=== PATIENT | female | born 1960 | race Caucasian/White ===

== ENCOUNTER 2017-09-18 18:29 | Emergency (ER) | payer BC ==
[~2017-09-18] VITALS: Ht 157.5 cm; Wt 108.2 kg
[~2017-09-18 18:29] MED LIST: ENALAPRIL MALEA10 MG PO; LANTUS; METFORMIN HCL500 M3; Z.0.ACTOS15 MG PO; Z.0.ATENOLOL25 MG PO; Z.0.GLYBURIDE5 MG PO; Z.0.SIMVASTATIN20 MG PO; Z.0.ZOLPIDEM TARTRAT PO; ZIAC1 UDTAB GT; [UNRECOGNIZED DRUG - OTHER]
[2017-09-18] MEDS ORDERED: ALPRAZOLAM 0.5 MG TAB PO ONE (20:15)
[2017-09-18 20:43] VITALS: BP 148/84
== END 2017-09-18 20:50 | disposition home or self-care (01) ==
LOC: FSED 18:29
DX: F41.1 Generalized anxiety disorder (principal); I10 Essential (primary) hypertension; I51.9 Heart disease, unspecified; F17.210 Nicotine dependence, cigarettes, uncomplicated
CPT/HCPCS: 99282

== ENCOUNTER → 2018-02-19 | Day surgery (SDC) | payer BC ==
[~2018-02-19] MED LIST changes: +ASPIR 8181 MG PO; +FENOFIBRATE134 MG PO; +FENTANYL CITRATE/PF 100MCG/2 ML INJ ONE; +GLUCAGON FOR INJ 1 MG VIAL ONE; +HUMALOG100 UNIT/1 SC; +HYOSCYAMINE SULFATE 0.5 MG/ML INJ ONE; +MIDAZOLAM HCL 2 MG/2 ML VIAL ONE; +MULTI-VITAMIN1 EACH PO; +PANTOPRAZOLE SO40 MG PO; +PROPOFOL IV EMULSION 10 MG/ML 50 ML VIAL ONE; +TRESIBA PO; +VITAMIN B-121000 MC1 PO; +VITAMIN D1000 UNI1 PO
--- OUTSIDE RECORDS SUMMARY | 2018-02-19 12:52 | XMS REPORT | Continuity of Care Document ---
Author Author [facility] Interface Address Unknown Phone Unavailable Problems Problem Status Onset Date Classification Date Reported Comments Source SEPTIC KNEE Active 12/17/2015 [facility] RIGHT KNEE PAIN Active 12/17/2015 [facility] UNK Active 11/09/2015 [facility] DM (<span [id number]">Confirmed</span>) Active Problem 12/23/2015 [facility] Heartburn Active Problem 12/23/2015 [facility] Hypercholesteremia Active Problem 12/23/2015 [facility] HTN (<span ID="[id number]">Confirmed</span>) Active Problem 12/23/2015 [facility] ARTHRITIS DUE TO OTHER BACTERIA, LEFT KN Active [facility] PAIN IN RIGHT KNEE Active [facility] Medications Medication Details Route Status Patient Instructions Ordering Provider Order Date Source RN-wait to give Vanc dose till Trough drawn 12/19/15@ 3:30 RN-wait to give Vanc dose till Trough drawn 12/19/15@ 3:30, Attn:CEDRIC, Drug form: MISC, Route: MISC, ONCE, 12/19/15 3:00:00 CDT, Stop date: 12/19/15 3:00:00 CDT Inactive 12/19/2015 [facility] Humalog 24 unit, Route: SUB-Q, Before Lunch, Dosing Weight 113.636, kg, Start date: 12/18/15 11:30:00 CDT, Duration: 30 day, Stop date: 01/16/16 11:30:00 [employer] No Longer Active 12/18/2015 [facility] NovoLOG FlexPen 24 unit, 0.24 mL, Route: SUB-Q, Drug form: SOLN, Before Lunch, Start date: 12/18/15 11:30:00 CDT, Duration: 30 day, Stop date: 01/16/16 11:30:00 CSTNotes: Roll in palms of hands gently; Do not shake vigorously. (Same as: NovoLOG) "single patient use only" WASTE: F/P - Black; E - Municipal Trash Bin Stable for 28 days at room temperature. Expires in days from Date No Longer Active 12/18/2015 [facility] pantoprazole 40 mg, 1 tab, Route: PO, Drug form: ECTAB, Daily, Dosing Weight 113.636, kg, Start date: 12/18/15 9:00:00 CDT, Duration: 30 day, Stop date: 01/16/16 9:00:00 CSTNotes: Tablet should not be chewed or c rushed. (Same as: Protonix) No Longer Active 12/18/2015 [facility] One-A-Day Women 50 Plus 1 tab, Route: PO, Drug Form: TAB, Dosing Weight 113.636, kg, Daily, Start date: 12/18/15 9:00:00 CDT, Duration: 30 day, Stop date: 01/16/16 9:00:00 CSTNotes: (Same as:Thera-M, Theragran-M) WASTE: F/P - Black; E - Municipal Trash Bin Give with food. No Longer Active 12/18/2015 [facility] Hydrochlorothiazide 25 mg, 1 tab, Route: PO, Drug form: TAB, Daily, Dosing Weight 113.636, kg, Start date: 12/18/15 9:00:00 CDT, Duration: 30 day, Stop date: 01/16/16 9:00:00 CSTNotes: (Same as: Hydrodiuril) With food. No Longer Active 12/18/2015 [facility] enalapril 10 mg, 1 tab, Route: PO, Drug form: TAB, Daily, Dosing Weight 113.636, kg, Start date: 12/18/15 9:00:00 CDT, Duration: 30 day, Stop date: 01/16/16 9:00:00 CSTNotes: (Same as: Vasotec) No Longer Active 12/18/2015 [facility] Vitamin B12 2,500 microgram, 5 tab, Route: PO, Drug form: TAB, Daily, Dosing Weight 113.636, kg, Start date: 12/18/15 9:00:00 CDT, Duration: 30 day, Stop date: 01/16/16 9:00:00 CSTNotes: (Same As: Vitamin B12) No Longer Active 12/18/2015 [facility] Bupropion 200 mg, 2 tab, Route: PO, Drug form: ERTAB, Daily, Dosing Weight 113.636, kg, Start date: 12/18/15 9:00:00 CDT, Duration: 30 day, Stop date: 01/16/16 9:00:00 CSTNotes: Do not crush or chew. (Same As: Wellbutrin SR) No Longer Active 12/18/2015 [facility] Atenolol 50 mg, 1 tab, Route: PO, Drug form: TAB, Daily, Dosing Weight 113.636, kg, Start date: 12/18/15 9:00:00 CDT, Duration: 30 day, Stop date: 01/16/16 9:00:00 CSTNotes: (Same As:Tenormin) No Longer Active 12/18/2015 [facility] Levemir FlexPen 25 unit, 0.25 mL, Route: SUB-Q, Drug form: INJ, Before Breakfast, Start date: 12/18/15 7:30:00 CDT, Duration: 30 day, Stop date: 01/16/16 7:30:00 CSTNotes: Same as Levemir Do not hold insulin without co ntacting prescriber WASTE: F/P - Black; E - Municipal Trash Bin "single patient use only" No Longer Active 12/18/2015 [facility] NovoLOG FlexPen 24 unit, 0.24 mL, Route: SUB-Q, Drug form: SOLN, Before Breakfast, Start date: 12/18/15 7:30:00 CDT, Duration: 30 day, Stop date: 01/16/16 7:30:00 CSTNotes: Roll in palms of hands gently; Do not sha ke vigorously. (Same as: NovoLOG) "single patient use only" WASTE: F/P - Black; E - Municipal Trash Bin Stable for 28 days at room temperature. Expires in days from Date No Longer Active 12/18/2015 [facility] Humalog 24 unit, Route: SUB-Q, Before Breakfast, Dosing Weight 113.636, kg, Start date: 12/18/15 7:30:00 CDT, Duration: 30 day, Stop date: 01/16/16 7:30:00 [employer] No Longer Active 12/18/2015 [facility] Insulin Glargine 100 UNT/ML Injectable Solution [Lantus] 25 unit, Route: SUB-Q, Drug form: SOLN, Before Breakfast, Dosing Weight 113.636, kg, Start date: 12/18/15 7:30:00 CDT, Duration: 30 day, Stop date: 01/16/16 7:30:00 [employer] No Longer Active 12/18/2015 [facility] Calcium Chloride 0.0014 MEQ/ML / Potassium Chloride 0.004 MEQ/ML / Sodium Chloride 0.103 MEQ/ML / Sodium Lactate 0.028 MEQ/ML Injectable Solution 1,000 mL, Rate: 25 ml/hr, Infuse over: 40 hr, Route: IV, Dosing Weight 113.636 kg, Total Volume: 1,000, Start date: 12/18/15 0:38:00 CDT, Duration: 30 day, Stop date: 01/17/16 0:37:00 [employer] Inactive 12/18/2015 [facility] Ambien 5 mg, 1 tab, Route: PO, Drug form: TAB, Bedtime, Dosing Weight 113.636, kg, Start date: 12/17/15 21:00:00 CDT, Duration: 30 day, Stop date: 01/15/16 21:00:00 CSTNotes: (Same As: Ambien) No Longer Active 12/18/2015 [facility] Simvastatin 40 mg, 1 tab, Route: PO, Drug form: TAB, Bedtime, Dosing Weight 113.636, kg, Start date: 12/17/15 21:00:00 CDT, Duration: 30 day, Stop date: 01/15/16 21:00:00 CSTNotes: (Same as: Zocor) No Longer Active 12/18/2015 [facility] Insulin Glargine 100 UNT/ML Injectable Solution [Lantus] Route: SUB-Q, Drug form: SOLN, Bedtime, Dosing Weight 113.636, kg, Start date: 12/17/15 21:00:00 CDT, Duration: 30 day, Stop date: 01/15/16 21:00:00 [employer] Inactive 12/18/2015 [facility] gabapentin 600 mg, 2 cap, Route: PO, Drug form: CAP, Bedtime, Dosing Weight 113.636, kg, Start date: 12/17/15 21:00:00 CDT, Duration: 30 day, Stop date: 01/15/16 21:00:00 CSTNotes: (Same as: Neurontin) No Longer Active 12/18/2015 [facility] Fenofibrate 145 mg, 1 tab, Route: PO, Drug form: TAB, Bedtime, Dosing Weight 113.636, kg, Start date: 12/17/15 21:00:00 CDT, Duration: 30 day, Stop date: 01/15/16 21:00:00 CSTNotes: (Same as: Tricor) No Longer Active 12/18/2015 [facility] Levemir FlexPen 80 unit, 0.8 mL, Route: SUB-Q, Drug form: INJ, Bedtime, Start date: 12/17/15 21:00:00 CDT, Duration: 30 day, Stop date: 01/15/16 21:00:00 CSTNotes: Same as Levemir Do not hold insulin without contact ing prescriber WASTE: F/P - Black; E - Municipal Trash Bin "single patient use only" No Longer Active 12/18/2015 [facility] Metformin 1,000 mg, 2 tab, Route: PO, Drug form: TAB, BID, Dosing Weight 113.636, kg, Start date: 12/17/15 17:00:00 CDT, Duration: 30 day, Stop date: 01/16/16 9:00:00 CSTNotes: (Same as: Glucophage) Take with meal No Longer Active 12/17/2015 [facility] vancomycin + sodium chloride 0.9% 500 mL INJ (for IV set) 500 mL 2,000 mg, Route: IVPB, Q12H, Start date: 12/17/15 17:00:00 CDT, Stop date: 01/16/16 16:00:00 CSTNotes: TIME CRITICAL MEDICATION (Same As: Vancocin) Infusion rate 2001 mg: infuse over 2.5 hours MEDICATION WASTE Product Size: 1000 mg Product Wasted: ___ mg No Longer Active 12/17/2015 [facility] Vancomycin 1 ea, Route: MISC, Dosing Weight 113.636, kg, ONCALL, Start date: 12/17/15 17:00:00 CDT, Duration: 1 doses or times, Pharmacy to dose Inactive 12/17/2015 [facility] Humalog Route: SUB-Q, Before Dinner, Dosing Weight 113.636, kg, Start date: 12/17/15 16:30:00 CDT, Duration: 30 day, Stop date: 01/15/16 16:30:00 [employer] Inactive 12/17/2015 [facility] NovoLOG FlexPen 30 unit, 0.3 mL, Route: SUB-Q, Drug form: SOLN, Before Dinner, Start date: 12/17/15 16:30:00 CDT, Duration: 30 day, Stop date: 01/15/16 16:30:00 CSTNotes: Roll in palms of hands gently; Do not shake vigorously. (Same as: NovoLOG) "single patient use only" WASTE: F/P - Black; E - Municipal Trash Bin Stable for 28 days at room temperature. Expires in days from Date No Longer Active 12/17/2015 [facility] Morphine 4 mg, 2 mL, Route: IVP, Drug form: INJ, Q4H, Dosing Weight 113.636, kg, PRN Pain Score 6-10, Start date: 12/17/15 16:12:00 CDT, Duration: 30 day, Stop date: 01/16/16 16:11:00 CSTNotes: (Same as:MORPhine Sulfate) No Longer Active 12/17/2015 [facility] Tylenol 650 mg, 2 tab, Route: PO, Drug form: TAB, Q6H, Dosing Weight 113.636, kg, PRN Pain 1-3/Temp > 100.4 F, Start date: 12/17/15 16:12:00 CDT, Duration: 30 day, Stop date: 01/16/16 16:11:00 CSTNotes: Do not exceed 4 gm/day. (Same as: Tylenol) No Longer Active 12/17/2015 [facility] Zofran 4 mg, 2 mL, Route: IV, Drug form: INJ, Q6H, Dosing Weight 113.636, kg, PRN Nausea, Start date: 12/17/15 16:12:00 CDT, Duration: 30 day, Stop date: 01/16/16 16:11:00 CSTNotes: (Same as: Mariano) MEDICATION WASTE Product Size: 4 mg Product Wasted: ___ mg No Longer Active 12/17/2015 [facility] sodium chloride 0.9% 1000 ml INJ 1,000 mL 1,000 mL, Rate: 100 ml/hr, Infuse over: 10 hr, Route: IV, Dosing Weight 113.636 kg, Total Volume: 1,000, Start date: 12/17/15 16:11:00 CDT, Stop date: 01/16/16 23:00:00 [employer] No Longer Active 12/17/2015 [facility] Insulin, Aspart, Human 2 unit, 0.02 mL, Route: SUB-Q, Drug form: SOLN, Bedtime, Dosing Weight 113.636, kg, PRN Blood Glucose Results, Start date: 12/17/15 16:09:00 CDT, Duration: 30 day, Stop date: 01/16/16 16:08:00 CSTNotes: Roll in palms of hands gently; Do not shake vigorously. (Same as: NovoLOG) "single patient use only" WASTE: F/P - Black; E - Municipal Trash Bin Stable for 28 days at room temperature. Expires in days from Date No Longer Active 12/17/2015 [facility] Dextrose 50% Syringe 25 gm, 50 mL, Route: IVP, Drug Form: INJ, Dosing Weight 113.636, kg, PRN, PRN Blood Glucose Results, Start date: 12/17/15 16:09:00 CDT, Duration: 30 day, Stop date: 01/16/16 15:08:00 [employer] No Longer Active 12/17/2015 [facility] Glucagon 1 mg, Route: IM, Drug form: PDR/INJ, PRN, Dosing Weight 113.636, kg, PRN Blood Glucose Results, Start date: 12/17/15 16:09:00 CDT, Duration: 30 day, Stop date: 01/16/16 15:08:00 [employer] No Longer Active 12/17/2015 [facility] Enoxaparin 40 mg, 0.4 mL, Route: SUB-Q, Drug form: INJ, [id number], Dosing Weight 113.636, kg, Consider for obese patients, Start date: 12/17/15 16:00:00 CDT, Duration: 30 day, Stop date: 01/16/16 4:00:00 CSTNotes: (Same as: Lovenox) No Longer Active 12/17/2015 [facility] Humalog 30, SUB-Q, Before Dinner, 0 Refill(s) Active 12/17/2015 [facility] Humalog 24 unit, SUB-Q, Before Lunch, 0 Refill(s) Active 12/17/2015 [facility] Insulin Glargine 100 UNT/ML Injectable Solution [Lantus] 80, SUB-Q, Bedtime, 0 Refill(s) Active 12/17/2015 [facility] Clindamycin 900 mg, 50 mL, Route: IVPB, Drug form: INJ, [id number], Dosing Weight 111.818, kg, Start date: 12/17/15 11:00:00 CDT, Duration: 5 day, Stop date: 12/22/15 3:00:00 CDT No Longer Active 12/17/2015 [facility] Vancomycin 1,500 mg, 250 mL, Route: IVPB, Drug form: INJ, [id number], Dosing Weight 111.818, kg, Start date: 12/17/15 11:00:00 CDT, Duration: 5 day, Stop date: 12/21/15 23:00:00 CDTNotes: TIME CRITICAL MEDICATION Same as: Vancocin-NS (premixed) Infusion rate 2001 mg: infuse over 2.5 hours Inactive 12/17/2015 [facility] Acetaminophen 325 MG / Hydrocodone Bitartrate 7.5 MG Oral Tablet [[place] 7.5/325] 2 tab, Route: PO, Drug Form: TAB, Dosing Weight 111.818, kg, Q4H, PRN Pain Score 7-10, Start date: 12/17/15 10:29:00 CDT, Duration: 5 day, Stop date: 12/22/15 10:28:00 CDTNotes: Same as [place] 325-7.5mg Do not exceed 4gm/day of acetaminophen. No Longer Active 12/17/2015 [facility] Ketorolac 15 mg, Route: IVP, Q6H, Dosing Weight 111.818, kg, Start date: 11/22/15 12:00:00 CDT, Duration: 6 doses or times, Stop date: 11/23/15 18:00:00 CDT Inactive 11/22/2015 [facility] dexamethasone (ANES) Route: IV, Drug form: INJ, ONCE, Stop date: 11/22/15 10:24:00 CDT Inactive 11/22/2015 [facility] acetaminophen (ANES) Route: IV, Drug form: INJ, ONCE, Stop date: 11/22/15 10:24:00 CDT Inactive 11/22/2015 [facility] fentaNYL (ANES) Route: IV, Drug form: INJ, ONCE, Stop date: 11/22/15 10:24:00 CDT Inactive 11/22/2015 [facility] propofol (ANES) Route: IV, Drug form: INJ, ONCE, Stop date: 11/22/15 10:24:00 CDT Inactive 11/22/2015 [facility] lidocaine (ANES) Route: IV, Drug form: INJ, ONCE, Stop date: 11/22/15 10:24:00 CDT Inactive 11/22/2015 [facility] ceFAZolin (ANES) Route: IV, Drug form: INJ, ONCE, Stop date: 11/22/15 10:24:00 CDT Inactive 11/22/2015 [facility] ondansetron (ANES) Route: IV, Drug form: INJ, ONCE, Stop date: 11/22/15 10:24:00 CDT Inactive 11/22/2015 [facility] midazolam (ANES) Route: IV, Drug form: SOLN, ONCE, Stop date: 11/22/15 10:24:00 CDT Inactive 11/22/2015 [facility] Phenergan 12.5 mg, Route: IVPB, Q4H, Dosing Weight 111.818, kg, PRN Nausea & Vomiting, Start date: 11/22/15 10:13:00 CDT, Duration: 30 day, Stop date: 12/22/15 10:12:00 CDT Inactive 11/22/2015 [facility] Zofran 4 mg, Route: IV, Drug form: INJ, Q4H, Dosing Weight 111.818, kg, PRN Nausea, Start date: 11/22/15 10:13:00 CDT, Duration: 30 day, Stop date: 12/22/15 10:12:00 CDT Inactive 11/22/2015 [facility] Morphine 2 mg, Route: IVP, Q3H, Dosing Weight 111.818, kg, PRN Pain Score 1-3, Start date: 11/22/15 10:13:00 CDT, Duration: 30 day, Stop date: 12/22/15 10:12:00 CDT Inactive 11/22/2015 [facility] Hydromorphone 0.3 mg, Route: IVP, Q3H, Dosing Weight 111.818, kg, PRN Pain Score 4-6, Start date: 11/22/15 10:13:00 CDT, Duration: 30 day, Stop date: 12/22/15 10:12:00 CDT Inactive 11/22/2015 [facility] Tramadol 50 mg, Route: PO, Drug form: TAB, Q6H, Dosing Weight 111.818, kg, PRN Pain Score 1-3, Start date: 11/22/15 10:13:00 CDT, Duration: 30 day, Stop date: 12/22/15 10:12:00 CDT Inactive 11/22/2015 [facility] Acetaminophen 325 MG / Hydrocodone Bitartrate 5 MG Oral Tablet Route: PO, Dosing Weight 111.818, kg, Q4H, PRN Pain Score 4-6, Start date: 11/22/15 10:13:00 CDT, Duration: 30 day, Stop date: 12/22/15 10:12:00 CDT Inactive 11/22/2015 [facility] LR 1000 mL INJ (ANES) Route: IV, Total Volume: 1,000, Start date: 11/22/15 9:29:00 CDT, Stop date: 11/22/15 10:29:00 CDT Inactive 11/22/2015 [facility] Calcium Chloride 0.0014 MEQ/ML / Potassium Chloride 0.004 MEQ/ML / Sodium Chloride 0.103 MEQ/ML / Sodium Lactate 0.028 MEQ/ML Injectable Solution 1,000 mL, Rate: 25 ml/hr, Infuse over: 40 hr, Route: IV, Dosing Weight 111.818 kg, Total Volume: 1,000, Start date: 11/22/15 8:08:00 CDT, Duration: 30 day, Stop date: 12/22/15 8:07:00 CDT Inactive 11/22/2015 [facility] pantoprazole 40 mg oral enteric coated tablet 40 mg=1 tab, PO, Daily, # 30 tab, 0 Refill(s) Active 11/22/2015 [facility] buPROPion 200 mg oral extended release tablet 200 mg=1 tab, PO, Daily, # 60 tab, 0 Refill(s) Active 11/22/2015 [facility] Bupropion PO, 0 Refill(s) Active 11/22/2015 [facility] Cephalexin 500 MG Oral Capsule [Keflex] 500 mg=1 cap, PO, QID, X 10 day, # 40 cap, 0 Refill(s) Active 11/22/2015 [facility] Tramadol 50 mg, PO, Q4-6H, PRN Pain, # 20 tab, 0 Refill(s) Active 11/16/2015 [facility] Ambien PO, Bedtime, 0 Refill(s) Active 11/16/2015 [facility] Bydureon Pen 2 mg, SUB-Q, 0 Refill(s) Active 11/16/2015 [facility] Atenolol PO, Daily, 0 Refill(s) Active 11/16/2015 [facility] Vitamin D2 PO, 0 Refill(s) Active 11/16/2015 [facility] Vitamin B12 0 Refill(s) Active 11/16/2015 [facility] Glucosamine PO, 0 Refill(s) Active 11/16/2015 [facility] gabapentin PO, 0 Refill(s) Active 11/16/2015 [facility] Fenofibrate PO, Daily, 0 Refill(s) Active 11/16/2015 [facility] Aspirin 81 MG Enteric Coated Tablet 81 mg=1 tab, PO, Daily, # 90 tab, 3 Refill(s) Active 11/16/2015 [facility] enalapril 0 Refill(s) Active 11/16/2015 [facility] Simvastatin PO, Bedtime, 0 Refill(s) Active 11/16/2015 [facility] One-A-Day Women 50 Plus 1 tab, PO, Daily, 0 Refill(s) Active 11/16/2015 [facility] Hydrochlorothiazide PO, Daily, 0 Refill(s) Active 11/16/2015 [facility] Metformin PO, 0 Refill(s) Active 11/16/2015 [facility] Insulin Glargine 100 UNT/ML Injectable Solution [Lantus] SUB-Q, 0 Refill(s) Active 11/16/2015 [facility] Humalog SUB-Q, 0 Refill(s) Active 11/16/2015 [facility] Atenolol 25 Mg Tablet Daily Active [facility] Enalapril Maleate 10 Mg Tablet Daily Active [facility] Gabapentin (Gralise) 300 Mg Tab.er.24h Daily Active [facility] Glyburide 5 Mg Tablet Twice A Day Active [facility] Hctz/Bisoprolol (Ziac) 1 Udtab Tab Daily Active [facility] Lantus Active [facility] Metformin Hcl (Metformin Hcl Er) 500 Mg Tab.er.24 Twice A Day [facility] Pioglitazone Hcl (Actos) 15 Mg Tablet Daily Active [facility] Simvastatin 20 Mg Tablet Daily [facility] Zolpidem Tartrate 5 Mg Tablet As Needed [facility] Allergies, Adverse Reactions, Alerts Substance Category Reaction Severity Reaction type Status Date Reported Comments Source Immunizations Immunization Date Given Site Status Last Updated Comments Source Results Order Name Results Value Reference Range Date Interpretation Comments Source HEMATOLOGY MPV 7.4 fL 7.4 - 10.4 12/20/2015 [facility] Platelet 376 K/CMM 133 - 450 12/20/2015 [facility] RBC 3.68 M/CMM 4.20 - 5.40 12/20/2015 [facility] Hgb 10.0 g/dL 12.0 - 16.0 12/20/2015 [facility] MCV 83.8 fL 80.0 - 98.0 12/20/2015 [facility] HEMATOLOGY Hct 30.8 % 36.0 - 48.0 12/20/2015 [facility] MCH 27.2 pg 27.0 - 31.0 12/20/2015 [facility] MCHC 32.5 g/dL 32.0 - 36.0 12/20/2015 [facility] RDW 16.2 % 11.5 - 14.5 12/20/2015 [facility] WBC 6.9 K/CMM 3.7 - 10.4 12/20/2015 [facility] Basophils # 0.1 K/CMM 0.0 - 0.2 12/20/2015 [facility] HEMATOLOGY Segs 70.7 % 45.0 - 75.0 12/20/2015 [facility] HEMATOLOGY Lymphocytes 16.3 % 20.0 - 40.0 12/20/2015 [facility] HEMATOLOGY Monocytes 7.9 % 2.0 - 12.0 12/20/2015 [facility] HEMATOLOGY Eosinophils 4.2 % 0.0 - 4.0 12/20/2015 [facility] HEMATOLOGY Segs-Bands # 4.9 K/CMM 1.5 - 8.1 12/20/2015 [facility] HEMATOLOGY Monocytes # 0.5 K/CMM 0.0 - 0.8 12/20/2015 [facility] HEMATOLOGY Basophils 0.9 % 0.0 - 1.0 12/20/2015 [facility] HEMATOLOGY Lymphocytes # 1.1 K/CMM 1.0 - 5.5 12/20/2015 [facility] HEMATOLOGY Eosinophils # 0.3 K/CMM 0.0 - 0.5 12/20/2015 [facility] TOXICOLOGY Vanco Tr 16.8 ug/ml 12/19/2015 [facility] TOXICOLOGY Vanco Tr TND 0 12/19/2015 [facility] CHEM PANEL Glucose Lvl 129 mg/dL 70 - 99 12/18/2015 [facility] CHEM PANEL BUN 18 mg/dL 7 - 22 12/18/2015 [facility] CHEM PANEL Chloride Lvl 102 meq/L 95 - 109 12/18/2015 [facility] CHEM PANEL CO2 26 meq/L 24 - 32 12/18/2015 [facility] CHEM PANEL Potassium Lvl 4.2 meq/L 3.5 - 5.1 12/18/2015 [facility] CHEM PANEL Sodium Lvl 138 meq/L 135 - 145 12/18/2015 [facility] CHEM PANEL Creatinine Lvl 0.74 mg/dL 0.50 - 1.40 12/18/2015 [facility] CHEM PANEL AGAP 14.2 meq/L 10.0 - 20.0 12/18/2015 [facility] CHEM PANEL Calcium Lvl 8.2 mg/dL 8.5 - 10.5 12/18/2015 [facility] CHEM PANEL eGFR 93 mL/min/1.73m2 12/18/2015 Result Comment: The eGFR is calculated using the CKD-EPI formula. In most young, healthy individuals the eGFR will be >90 mL/min/1.73m2. The eGFR declines with age. An eGFR of 60-89 may be normal in some populations, particularly the elderly, for whom the CKD-EPI formula has not been extensively validated. Use of the eGFR is not recommended in the following populations: Individuals with unstable creatinine concentrations, including patients and those with serious co-morbid conditions. Patients with extremes in muscle mass or diet. The data above are obtained from the National Kidney Disease Education Program (NKDEP) which additionally recommends that when the eGFR is used in patients with extremes of body mass index for purposes of drug dosing, the eGFR should be multiplied by the estimated BMI. [facility] HEMATOLOGY WBC 7.9 K/CMM 3.7 - 10.4 12/18/2015 [facility] Hct 32.0 % 36.0 - 48.0 12/18/2015 [facility] MCHC 32.3 g/dL 32.0 - 36.0 12/18/2015 [facility] RDW 16.4 % 11.5 - 14.5 12/18/2015 [facility] RBC 3.81 M/CMM 4.20 - 5.40 12/18/2015 [facility] Hgb 10.3 g/dL 12.0 - 16.0 12/18/2015 [facility] Platelet 388 K/CMM 133 - 450 12/18/2015 [facility] MCV 84.0 fL 80.0 - 98.0 12/18/2015 [facility] MCH 27.2 pg 27.0 - 31.0 12/18/2015 [facility] MPV 7.8 fL 7.4 - 10.4 12/18/2015 [facility] Basophils # 0.1 K/CMM 0.0 - 0.2 12/18/2015 [facility] Segs-Bands # 5.5 K/CMM 1.5 - 8.1 12/18/2015 [facility] Lymphocytes # 1.6 K/CMM 1.0 - 5.5 12/18/2015 [facility] Monocytes # 0.6 K/CMM 0.0 - 0.8 12/18/2015 [facility] HEMATOLOGY Eosinophils # 0.2 K/CMM 0.0 - 0.5 12/18/2015 [facility] HEMATOLOGY Basophils 1.0 % 0.0 - 1.0 12/18/2015 [facility] HEMATOLOGY Eosinophils 2.2 % 0.0 - 4.0 12/18/2015 [facility] Lymphocytes 19.6 % 20.0 - 40.0 12/18/2015 [facility] HEMATOLOGY Segs 69.7 % 45.0 - 75.0 12/18/2015 [facility] HEMATOLOGY Monocytes 7.5 % 2.0 - 12.0 12/18/2015 [facility] BLOOD BANK RESULTS AB Int Anti- D 12/18/2015 [facility] BLOOD BANK RESULTS ABO/Rh B NEG 12/17/2015 [facility] BLOOD BANK RESULTS Antibody Scrn Positive 1 (12/17/15 2:33 PM) 12/17/2015 Result Comment: 12/17/2015 18:20 [id number] "Significant Findings called to Janice Mercer 12/17/2015 18:20__by _[email or web address]_.Read Back OK." [facility] CHEM PANEL eGFR 78 mL/min/1.73m2 12/17/2015 Result Comment: The eGFR is calculated using the CKD-EPI formula. In most young, healthy individuals the eGFR will be >90 mL/min/1.73m2. The eGFR declines with age. An eGFR of 60-89 may be normal in some populations, particularly the elderly, for whom the CKD-EPI formula has not been extensively validated. Use of the eGFR is not recommended in the following populations: Individuals with unstable creatinine concentrations, including patients and those with serious co-morbid conditions. Patients with extremes in muscle mass or diet. The data above are obtained from the National Kidney Disease Education Program (NKDEP) which additionally recommends that when the eGFR is used in patients with extremes of body mass index for purposes of drug dosing, the eGFR should be multiplied by the estimated BMI. [facility] CHEM PANEL Potassium Lvl 4.7 meq/L 3.5 - 5.1 12/17/2015 [facility] CHEM PANEL Calcium Lvl 8.9 mg/dL 8.5 - 10.5 12/17/2015 [facility] CHEM PANEL CO2 25 meq/L 24 - 32 12/17/2015 [facility] CHEM PANEL Chloride Lvl 103 meq/L 95 - 109 12/17/2015 [facility] CHEM PANEL Creatinine Lvl 0.85 mg/dL 0.50 - 1.40 12/17/2015 [facility] CHEM PANEL BUN 17 mg/dL 7 - 22 12/17/2015 [facility] CHEM PANEL Sodium Lvl 138 meq/L 135 - 145 12/17/2015 [facility] CHEM PANEL Glucose Lvl 190 mg/dL 70 - 99 12/17/2015 [facility] CHEM PANEL AGAP 14.7 meq/L 10.0 - 20.0 12/17/2015 [facility] HEMATOLOGY PT 13.4 s 12.0 - 14.7 12/17/2015 [facility] HEMATOLOGY INR 1.00 0.85 - 1.17 12/17/2015 [facility] HEMATOLOGY MPV 7.9 fL 7.4 - 10.4 12/17/2015 [facility] HEMATOLOGY Hgb 11.2 g/dL 12.0 - 16.0 12/17/2015 [facility] HEMATOLOGY MCV 84.4 fL 80.0 - 98.0 12/17/2015 [facility] HEMATOLOGY Hct 35.7 % 36.0 - 48.0 12/17/2015 [facility] HEMATOLOGY MCHC 31.4 g/dL 32.0 - 36.0 12/17/2015 [facility] HEMATOLOGY MCH 26.5 pg 27.0 - 31.0 12/17/2015 [facility] HEMATOLOGY WBC 11.6 K/CMM 3.7 - 10.4 12/17/2015 [facility] HEMATOLOGY RDW 16.9 % 11.5 - 14.5 12/17/2015 [facility] HEMATOLOGY Platelet 434 K/CMM 133 - 450 12/17/2015 [facility] HEMATOLOGY RBC 4.23 M/CMM 4.20 - 5.40 12/17/2015 [facility] HEMATOLOGY PTT 29.2 s 22.9 - 35.8 12/17/2015 [facility] HEMATOLOGY Monocytes 6.8 % 2.0 - 12.0 12/17/2015 [facility] HEMATOLOGY Lymphocytes 10.8 % 20.0 - 40.0 12/17/2015 [facility] HEMATOLOGY Basophils # 0.1 K/CMM 0.0 - 0.2 12/17/2015 [facility] HEMATOLOGY Eosinophils # 0.1 K/CMM 0.0 - 0.5 12/17/2015 [facility] HEMATOLOGY Eosinophils 0.8 % 0.0 - 4.0 12/17/2015 [facility] HEMATOLOGY Basophils 0.5 % 0.0 - 1.0 12/17/2015 [facility] HEMATOLOGY Lymphocytes # 1.3 K/CMM 1.0 - 5.5 12/17/2015 [facility] HEMATOLOGY Segs-Bands # 9.4 K/CMM 1.5 - 8.1 12/17/2015 [facility] HEMATOLOGY Monocytes # 0.8 K/CMM 0.0 - 0.8 12/17/2015 [facility] HEMATOLOGY Segs 81.1 % 45.0 - 75.0 12/17/2015 [facility] HEMATOLOGY Sed Rate 51 mm/h 0 - 20 12/17/2015 [facility] IMMUNOLOGY C-REACTIVE PROTEIN 108.0 mg/L <=2.9 mg/L 12/17/2015 [facility] URINE CHEM U Preg Negative (11/22/15 7:25 AM) Negative 11/22/2015 [facility] CHEM PANEL eGFR 72 mL/min/1.73m2 11/16/2015 Result Comment: The eGFR is calculated using the CKD-EPI formula. In most young, healthy individuals the eGFR will be >90 mL/min/1.73m2. The eGFR declines with age. An eGFR of 60-89 may be normal in some populations, particularly the elderly, for whom the CKD-EPI formula has not been extensively validated. Use of the eGFR is not recommended in the following populations: Individuals with unstable creatinine concentrations, including patients and those with serious co-morbid conditions. Patients with extremes in muscle mass or diet. The data above are obtained from the National Kidney Disease Education Program (NKDEP) which additionally recommends that when the eGFR is used in patients with extremes of body mass index for purposes of drug dosing, the eGFR should be multiplied by the estimated BMI. [facility] CHEM PANEL CO2 26 meq/L 24 - 32 11/16/2015 [facility] CHEM PANEL Calcium Lvl 9.2 mg/dL 8.5 - 10.5 11/16/2015 [facility] CHEM PANEL Sodium Lvl 137 meq/L 135 - 145 11/16/2015 [facility] CHEM PANEL Creatinine Lvl 0.91 mg/dL 0.50 - 1.40 11/16/2015 [facility] CHEM PANEL BUN 17 mg/dL 7 - 22 11/16/2015 [facility] CHEM PANEL Potassium Lvl 3.9 meq/L 3.5 - 5.1 11/16/2015 [facility] CHEM PANEL Glucose Lvl 185 mg/dL 70 - 99 11/16/2015 [facility] CHEM PANEL Chloride Lvl 103 meq/L 95 - 109 11/16/2015 [facility] CHEM PANEL AGAP 11.9 meq/L 10.0 - 20.0 11/16/2015 [facility] HEMATOLOGY Segs-Bands # 8.1 K/CMM 1.5 - 8.1 11/16/2015 [facility] HEMATOLOGY Eosinophils # 0.2 K/CMM 0.0 - 0.5 11/16/2015 [facility] HEMATOLOGY Basophils # 0.1 K/CMM 0.0 - 0.2 11/16/2015 [facility] HEMATOLOGY Lymphocytes # 1.4 K/CMM 1.0 - 5.5 11/16/2015 [facility] HEMATOLOGY Monocytes # 0.6 K/CMM 0.0 - 0.8 11/16/2015 [facility] HEMATOLOGY Monocytes 5.7 % 2.0 - 12.0 11/16/2015 [facility] HEMATOLOGY Eosinophils 1.6 % 0.0 - 4.0 11/16/2015 [facility] HEMATOLOGY Segs 78.1 % 45.0 - 75.0 11/16/2015 [facility] HEMATOLOGY Lymphocytes 13.9 % 20.0 - 40.0 11/16/2015 [facility] HEMATOLOGY Basophils 0.7 % 0.0 - 1.0 11/16/2015 [facility] HEMATOLOGY Platelet 425 K/CMM 133 - 450 11/16/2015 [facility] HEMATOLOGY MPV 7.7 fL 7.4 - 10.4 11/16/2015 [facility] HEMATOLOGY RDW 16.9 % 11.5 - 14.5 11/16/2015 [facility] HEMATOLOGY Hct 36.4 % 36.0 - 48.0 11/16/2015 [facility] HEMATOLOGY MCV 83.4 fL 80.0 - 98.0 11/16/2015 [facility] HEMATOLOGY Hgb 11.7 g/dL 12.0 - 16.0 11/16/2015 [facility] HEMATOLOGY MCH 26.7 pg 27.0 - 31.0 11/16/2015 [facility] HEMATOLOGY MCHC 32.0 g/dL 32.0 - 36.0 11/16/2015 [facility] HEMATOLOGY RBC 4.37 M/CMM 4.20 - 5.40 11/16/2015 [facility] HEMATOLOGY WBC 10.4 K/CMM 3.7 - 10.4 11/16/2015 [facility] Vital Signs Vital Sign Value Date Comments Source Respitory Rate 18 12/20/2015 [facility] Systolic (mm Hg) 125 12/20/2015 [facility] Diastolic (mm Hg) 69 12/20/2015 [facility] Temperature Oral (F) 98.1 F 12/20/2015 [facility] Heart Rate 81 12/20/2015 [facility] Systolic (mm Hg) 113 12/20/2015 [facility] Diastolic (mm Hg) 64 12/20/2015 [facility] Respitory Rate 18 12/20/2015 [facility] Heart Rate 82 12/20/2015 [facility] Temperature Oral (F) 97.8 F 12/20/2015 [facility] Systolic (mm Hg) 112 12/20/2015 [facility] Diastolic (mm Hg) 70 12/20/2015 [facility] Respitory Rate 18 12/20/2015 [facility] Heart Rate 95 12/20/2015 [facility] Temperature Oral (F) 98.1 F 12/20/2015 [facility] BMI Calculated 45.82 12/17/2015 [facility] Height 157.48 cm 12/17/2015 [facility] Weight 113.636 12/17/2015 [facility] Systolic (mm Hg) 119 11/22/2015 [facility] Diastolic (mm Hg) 59 11/22/2015 [facility] Respitory Rate 18 11/22/2015 [facility] Systolic (mm Hg) 123 11/22/2015 [facility] Diastolic (mm Hg) 67 11/22/2015 [facility] Respitory Rate 16 11/22/2015 [facility] Respitory Rate 15 11/22/2015 [facility] Systolic (mm Hg) 102 11/22/2015 [facility] Diastolic (mm Hg) 55 11/22/2015 [facility] Heart Rate 93 11/16/2015 [facility] Temperature Oral (F) 97.6 F 11/16/2015 [facility] BMI Calculated 45.09 11/16/2015 [facility] Weight 111.818 11/16/2015 [facility] Height 157.48 cm 11/16/2015 [facility] Encounters Location Location Details Encounter Type Encounter Number Reason For Visit Attending Provider ADM Date DC Date Status Source [facility] Day Surgery [id number] Isaias Al 11/22/2015 11/22/2015 [facility] Inpatient [id number] Jose R Lopez 12/18/2015 12/20/2015 [facility] Departed Emergency Room [id number] JUHI CAPUTO MD 09/18/2017 09/18/2017 [facility] Procedures Procedure Code Date Perfomer Comments Source CS - section [id number] [facility] Operation [id number] [facility] Tonsillectomy [id number] [facility]
[2018-02-19 17:15] VITALS: BP 118/70
[2018-02-19 18:02] LABS: WBC,FECAL (FECAL LACTOFERRIN) NEGATIVE (NEGATIVE)
[2018-02-20 14:45] LABS: C DIFFICILE TOXIN A&B AMP PROB NEGATIVE (NEGATIVE)
--- NOTE | 2018-03-26 04:22 | Operative Report ---
DATE OF PROCEDURE: February 19, 2018 REFERRING PHYSICIAN: Dr. Ginna Lee PROCEDURES PERFORMED 1. Esophagogastroduodenoscopy with biopsies. 2. Colonoscopy with polypectomy and biopsies. INDICATIONS FOR EGD: Dyspepsia. INDICATIONS FOR COLONOSCOPY: Surveillance colonoscopy, personal history of colon polyps and chronic diarrhea. MEDICATION: Patient was done under MAC. Please see anesthesiologist's note. PROCEDURE: With the patient in the left lateral decubitus position, the flexible fiberoptic Olympus gastroscope was introduced into the esophagus under direct visualization without any difficulty. There was some patchy erythema noted in the distal esophagus. The scope was then advanced with ease into the stomach traversing a small sliding hiatal hernia. Mucosa overlying the antrum of the body revealed some patchy erythema and low-grade to moderate edema, and biopsies were obtained and sent to stain for H. pylori. Several hyperplastic appearing polyps were noted in the body of the stomach and some were partially excised with the cold biopsy forceps. There was a fold noted in the pyloric channel obstructing the channel and that was removed per snare electrocautery. The scope was then advanced with ease all the way to the 2nd portion of the duodenum. Biopsies were obtained from the proximal 2nd portion and the duodenal bulb to rule out sprue considering the patient's history of diarrhea. The scope was then withdrawn back into the stomach and retroflexed. The mucosa overlying the fundus and the cardia appeared to be within normal limits. The scope was then straightened out. It was subsequently withdrawn. Patient tolerated the procedure well. IMPRESSION 1. Mild distal esophagitis. 2. Small sliding hiatal hernia. 3. Gastritis, biopsied. Biopsies sent to stain for Helicobacter pylori. 4. Gastric polyps, some partially excised with the cold biopsy forceps. 5. Pyloric fold obstructing the pyloric channel, removed per snare electrocautery. 6. Rule out sprue. PLAN: Follow up histology. Initiate Protonix 40 mg 1 p.o. q.a.m. a.c. Patient was then turned around. After adequate lubrication of the anal canal, a flexible fiberoptic Olympus colonoscope was inserted into the rectum with ease and advanced all the way to the cecum. Mucosa overlying the cecum appeared to be within normal limits. The ileocecal valve was intubated and scope was advanced into the terminal ileum. Biopsies were obtained. The scope was then withdrawn back into the colon. It was then withdrawn slowly and mucosa overlying the ascending appeared to be within normal limits. One polyp was hot biopsied from the transverse colon. Two polyps were snared from the descending colon and 1 polyp was snared from the sigmoid colon. Mild patchy inflammatory changes were noted in the left colon and the rectum, and multiple random biopsies were obtained. The scope was then retroflexed into the distal rectum and small internal hemorrhoids were noted, none of which was actively bleeding. The scope was then straightened out. It was subsequently withdrawn after securing an adequate stool specimen that was sent for the appropriate stool studies. Patient tolerated the procedure well. IMPRESSION 1. Transverse colon polyp, hot biopsied. 2. Descending colon polyps times 2, snared. 3. Mild patchy left-sided colitis. 4. Sigmoid colon polyp, snared. 5. Proctitis, mild, biopsied. 6. Internal hemorrhoids, none actively bleeding. PLAN: Follow up histology. Follow up stool studies. Initiate Bentyl 20 mg 1 p.o. t.i.d. and VSL #3 one p.o. daily. Patient might benefit from a followup colonoscopy in 3 years. Job#: [id number] [place] cc:GINNA LEE MD
== END | disposition home or self-care (01) ==
LOC: OR 12:50
PROVIDERS: ATTEND Internal Medicine Gastroenterology
DX: D64.9 Anemia, unspecified (principal); D12.5 Benign neoplasm of sigmoid colon; D12.3 Benign neoplasm of transverse colon; K31.7 Polyp of stomach and duodenum; K29.70 Gastritis, unspecified, without bleeding; K51.50 Left sided colitis without complications; K31.1 Adult hypertrophic pyloric stenosis; K31.89 Other diseases of stomach and duodenum; K20.9 Esophagitis, unspecified; K44.9 Diaphragmatic hernia without obstruction or gangrene; K62.89 Other specified diseases of anus and rectum; K21.9 Gastro-esophageal reflux disease without esophagitis; K64.8 Other hemorrhoids; E78.00 Pure hypercholesterolemia, unspecified; E11.9 Type 2 diabetes mellitus without complications; I10 Essential (primary) hypertension; F41.9 Anxiety disorder, unspecified; Z01.810 Encounter for preprocedural cardiovascular examination; Z79.82 Long term (current) use of aspirin; Z79.4 Long term (current) use of insulin; Z68.41 Body mass index [BMI] 40.0-44.9, adult
CPT/HCPCS: 36415; 43239; 43251; 45380; 45384; 45385; 82948; 83630; 83993; 87045; 87177; 87328; 87493; 93005; J1610; J1980; J2250